=== PATIENT | female | born 1995 | race Caucasian/White ===

== ENCOUNTER → 2018-09-22 | Outpatient (CLI) | payer BC | LOC: COL.VAS 07:42 | DX: R55 Syncope and collapse (principal) ==

== ENCOUNTER → 2019-08-31 | Outpatient (CLI) | payer BC | LOC: COL.RAD 08:27 | DX: N85.8 Other specified noninflammatory disorders of uterus (principal) | CPT/HCPCS: A9585 ==

== ENCOUNTER 2020-10-01 01:52 | Inpatient (IN) | payer BC ==
[~2020-10-01] VITALS: Ht 162.6 cm; Wt 86.4 kg
[2020-10-01] VITALS (27 sets, daily range): BP systolic 109–135; BP diastolic 60–77; PULSE 75–114; TEMP 97.5–98.7
--- NOTE | 2020-10-01 02:00 | NUR ---
0200- PT PRESENTS TO LDR COMPLAINING OF LEAKING FLUID AND CONTRACTIONS, TO ROOM LR3 PER WHEELCHAIR, CHANGED INTO GOWN. 0214- EFM X2 APPLIED. PT STATES HER WATER BROKE WITH CLEAR FLUID AT 0130. SHE HAS BEEN PATRICIA ALL DAY, IS HAVING SOME BLOODY SHOW AND IS FEELING THE BABY MOVE. PLAN OF CARE DISCUSSED. 0220- AMNITRACE POSITIVE WITH POOLING. SVE BY THIS NURSE - WITH COPIOUS AMOUNTS OF FLUID. 0233- DR BOLES CALLED AND UPDATED WITH PT HISTORY, COMPLAINTS, STRIP INTERPRETATION, POSITIVE AMNIOTRACE, AND SVE. ORDERS FOR ADMISSION AND EPIDURAL IF DESIRED.
[2020-10-01] MEDS ORDERED: PRENATAL VITAMI1 TA3 PO (02:27)
--- NOTE | 2020-10-01 02:40 | NUR ---
0240- PT UPDATED ON PLAN OF CARE, NURSING ADMISSION HISTORY AND ASSESSMENT COMPLETE. PT WANTS AN EPIDURAL FOR PAIN RELIEF. 0250- IV START CHARTED, BLOOD DRAWN FOR LAB, LR INFUSING ORDERED. 0255- HELLEN LIVESTOCK SLAUGHTERER CALLED FOR EPIDURAL PLACEMENT. 0305- CONSENTS SIGNED. 0320- SVE BY THIS NURSE , HELLEN LIVESTOCK SLAUGHTERER AT BEDSIDE FOR EPIDURAL. PT POSITIONED SITTING UP IN BED. HELLEN DISCUSSES RISKS OF EPIDURAL AND OBTAINS CONSENT. TIME OUT. 0333- EPIDURAL SINGLE SHOT. 0336- EPIDURAL TEST DOSE. 0340- EPIDURAL PROCEDURE COMPLETE. PT TOLERATED WELL. PT POSITIONED IN BED WITH LEFT TILT. PLAN OF CARE DISCUSSED WELL WHAT TO EXPECT WITH EPIDURAL. QUESTIONS ANSWERED. 0350- PT REPORTS NO MORE SHARP PAIN WITH CONTRACTIONS, IS STILL FEELING SOME PRESSURE, BUT NO URGE TO PUSH.
[2020-10-01 03:06] LABS: BASO % 0.2 % (0.0-2.0); EOS % 0.3 % (0-4.0); GRAN # 6.2 (1.4-6.5); GRAN % 63.9 % (42.2-75.2); LYMPH # 2.5 (1.2-3.4); LYMPH % 26.3 % (20.0-51.0); MEAN CELL VOLUME 75 fl (80.0-100.0); MEAN CORPUSCULAR HEMOGLOBIN 24 pg (27.0-31.0); MEAN CORPUSCULAR HGB CONC 32 g/dl (33.0-37.0); MEAN PLATELET VOLUME 10.3 fl (7.4-10.4); MONO # 0.8 (0.1-0.6); MONO % 8.6 % (1.7-9.3); PLATELET COUNT 265 K/mm3 (130-400); RED BLOOD COUNT 4.22 M/mm3 (4.10-5.30)
[2020-10-01 03:07] LABS: HEMATOCRIT 31.6 % (37.0-47.0)
--- NOTE | 2020-10-01 05:00 | NUR ---
0500- PT RESTING QUIETLY 0540- PT STATES SHE IS FEELING SOME PRESSURE BUT NOT INTENSE. SVE BY THIS NURSE COMPLETE AND +2. 0550- DISCUSSED PLAN OF CARE FOR PUSHING. QUESTIONS ANSWERED. 0555- STRAIGHT CATH FOR MINIMAL URINE. PERICARE PROVIDED. PT POSITIONED IN STIRRUPS. 0600- PT BEGINS COACHED PUSHING WITH CONTRACTIONS.
--- NOTE | 2020-10-01 07:39 | NUR ---
[address] RUIZ AT 0739. VIABLE FEMALE. TO MOTHERS CHEST IN CARE OF EM GOYAL AND EM SCHULTZ. PLACENTA SPON DELIVERED BY DR RUIZ. FUNDAL MASSAGE PROVIDED. OXYTOCIN AT 333 MLS/ HR. 2ND DEGREE PREINEAL LAC REPAIRED BY DR RUIZ. STRAIGHT CATH PREFORMED BY DR RUIZ ICE PACK TO PERINEUM. WARM BLANKET PROVIDED. RECOVERY STARTED AT 0800
--- NOTE | 2020-10-01 09:46 | NUR ---
PATIENT AMBULATED FROM BED TO BATHROOM, UNABLE TO VOID, NEW GOWN, UNDIES AND PAD PROVIDED THEN WHEELED TO THE NURSERY WITH THE BABY TO WATCH A BATH DEMONSTRATION
[2020-10-02] MEDS ORDERED: MOTRIN 600600 MG/TAB PO (07:54)
[2020-10-02 08:00] VITALS: BP 127/79; PULSE 106; TEMP 97.8
--- NOTE | 2020-10-02 10:07 | NUR ---
Initial visit; Parents thanked Manager Field for looking in on them and offering congratulations and God's blessings for the of their daughter. Physician was present.
--- NOTE | 2020-10-02 11:49 | NUR ---
1115 DISCHARGE INSTRUCTIONS REVIEWED WITH PATIENT. PATIENT VERBALIZED UNDERSTANDING 1130 ALL PERSONAL BELONGINGS GATHERED FROM PATIENT ROOM. PATIENT LEFT AMBULATORY AND IN NO APPARENT DISTRESS. PATIENT ACCOMPANIED BY SPOUSE AND THIS RN.
== END 2020-10-02 11:30 | disposition home or self-care (01) | DRG 807 ==
LOC: LDRO 01:52 → LDR 02:36 → OB 09:46
PROVIDERS: Obstetrics & Gynecology; ADMIT Obstetrics & Gynecology
PROC: 10E0XZZ Delivery of Products of Conception, External Approach (ICD-10-PCS; principal; 2020-10-01)
PROC: 0KQM0ZZ Repair Perineum Muscle, Open Approach (ICD-10-PCS; 2020-10-01)
DX: O99.62 Diseases of the digestive system complicating childbirth (principal); Z37.0 Single live birth; K58.9 Irritable bowel syndrome, unspecified; O70.1 Second degree perineal laceration during delivery; O69.81X0 Labor and delivery complicated by cord around neck, without compression, not applicable or unspecified; Z3A.38 38 weeks gestation of pregnancy; Z20.828 Contact with and (suspected) exposure to other viral communicable diseases
CPT/HCPCS: J2590; J2795; J7120